=== PATIENT | female | born 1935 | race Caucasian/White ===

== ENCOUNTER → 2016-07-22 | Outpatient (CLI) | payer MEDICARE, BC ==
[~2016-07-22] MED LIST: ASCO10004 PO; CALC-183 PO; CELE200C PO; CHOL200024 PO; DARI15TA3 PO; HYDR-3138 PO; HYDR25TA6 PO; LETR2.5T2 PO; MELA3TAB PO; PYRI100T2 PO; TRAM50TA2 PO; VALS80TA3 PO
== END | disposition home or self-care (01) ==
LOC: CFH 12:00
PROVIDERS: ATTEND Internal Medicine Cardiovascular Disease
DX: T82.9XXA Unspecified complication of cardiac and vascular prosthetic device, implant and graft, initial encounter (principal); Z95.0 Presence of cardiac pacemaker
CPT/HCPCS: 71020